=== PATIENT | male | born 1985 | race Hispanic/Latino ===

== ENCOUNTER 2017-09-26 22:25 | Emergency (ER) | payer SELFPAY ==
[2017-09-26 22:25] VITALS: BMI 21.5
[2017-09-26] MEDS ORDERED: Bacitracin 500 Units/gm Oint Foilpak UD TOP ONE (22:51)
[2017-09-26 23:08] VITALS: RESP 20; O2SAT 99
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
[2017-09-26] MEDS ORDERED: Bacitracin 500 Units/gm Oint Foilpak UD ONE (23:35)
[2017-09-27 00:33] VITALS: BP 125/77; PULSE 90; TEMP 97.9
== END 2017-09-27 00:15 | disposition home or self-care (01) ==
LOC: C.ER 22:25
DX: F10.10 Alcohol abuse, uncomplicated (principal); Y90.9 Presence of alcohol in blood, level not specified; S00.81XA Abrasion of other part of head, initial encounter; S00.511A Abrasion of lip, initial encounter; S60.511A Abrasion of right hand, initial encounter; W18.30XA Fall on same level, unspecified, initial encounter